=== PATIENT | female | born 1930 | race Caucasian/White ===

== ENCOUNTER → 2018-07-10 | Day surgery (SDC) | payer OTHER ==
--- NOTE | 2018-07-07 10:34 | RAD REPORT ---
EXAM DESCRIPTION: RAD - Chest Pa And Lat (2 Views) - 07/07/2018 10:27 am CLINICAL HISTORY: preop Chest pain. COMPARISON: Chest Pa And Lat (2 Views) dated 06/30/2018; CHEST SINGLE VIEW dated 07/07/2014; CHEST SIN GLE VIEW dated 02/27/2013; CHEST PA AND LAT 2 VIEW dated 09/17/2008 FINDINGS: Diffuse emphysematous changes are present throughout the lungs. The heart is mildly to mod erately enlarged in size with a single lead pacer device present. No displaced fractures. Aortic athe rosclerosis. IMPRESSION: Advanced COPD. Mild cardiomegaly.
[2018-07-07 11:33] LABS: Potassium 4.1 mmol/L (3.5-5.1)
[2018-07-07 11:38] LABS: Absolute Lymphocytes (CBC) 1.1 K/uL (0.7-4.9); Absolute Monocytes 0.6 K/uL (0.1-1.3); Absolute Neutrophil 4.4 K/uL (1.8-8.0); Basophils % 0.6 % (0-1.3); Eosinophils % 1.5 % (0-4.4); Hematocrit 38.4 % (36.0-45.0); Lymphocytes % 18.3 % (15.3-44.8); MCH 29.9 pg (27.0-35.0); MCV 90.2 fL (80-100); MPV 8.6 fL (7.6-11.3); Monocytes % 9.6 % (3.3-12.3); RBC Red Blood Cell Count 4.26 M/uL (3.86-4.86)
[2018-07-07 11:46] LABS: Protime INR 1.44
[~2018-07-10] MED LIST: FENTANYL CITR 100 MCG/2 ML ONE; HEPA 1000U/500MLS 2,000 UNIT/1,000 ML BAG IV ONE; HEPARIN 5000 UNIT/ML 1 ML VIAL ONE; LIDOCAINE 1% MPF 30 ML VIAL ONE; MIDAZOLAM HCL 2 MG/2 ML INJ ONE; NA CHLORIDE 0.9% 100 ML IV ONE; NA CHLORIDE 0.9% 500 ML ONE; NICARDIPINE HCL 25 MG/10 ML IV ONE; NITROGLYCERIN/D5W 0 MG/0 ML BTL IV ONE
[2018-07-10 12:02] VITALS: O2SAT 96
[2018-07-10 12:40] VITALS: BP 133/40; TEMP 97.7
--- NOTE | 2018-07-10 20:25 | OP ---
Surgeon: García Strong MD Primary Care Physician: Lawrence Daniel M.D. Procedure: Left and right heart catheterization, coronary angiography, and calculation of aortic елена ve area. Procedure Findings: The patient has severe aortic stenosis. A mean pressure gradient of more than 5 0 mmHg. Cardiac output is 3.2 L/minute. Estimated aortic valve area less than 0.6 square cm. Her c oronary arteries are normal. No left ventriculogram was done. She has moderate pulmonary hypertensi on with RV and PA systolic pressures of 52 and 53 mmHg. Procedure In Detail: The patient was brought to the cardiac labor utilization superintendent in a fasting state, sedated wit h Versed and fentanyl. Right femoral vein and artery were identified using palpation. A 1% lidocain e was used to anesthetize the skin over each one. Each vessel was entered with an 18-gauge needle. Modified Seldinger technique allowed us to put a 4-Romansh sheath in the femoral artery and a 7-Romansh sheath in the femoral vein. We used a [place]-Marek catheter to do right heart catheterization, cardiac output, it had to be guided into place using a 0.025 inch guidewire to give the curve acceptable. T he guidewire was not actually extended but just used to shape the catheter. Cardiac outputs were by thermal dilution, pressures were by digital manometry. At the end of the procedure, the left coronar y artery was angiogrammed using a JL-4 right coronary using a 3DRC. We were unable to cross the aort ic valve with a J-wire, so we used a straight wire. We could not cross it using a 3DRC. We used an Amplatz right modified. With that we were able to direct the wire and cross the valve and got a pres sure gradient mean about 50 mmHg. At the end of the procedure, catheters and wires were all withdraw n. An angiogram was done of the right femoral artery using the sheath. The arteriotomy closed with Angio-Seal device. Vein closed using manual pressure. No complications from the procedure. Estimated Blood Loss: 10 cc. Movie Critic: Latosha Marcum. DAMIEN/DANA Voice ID: [id number] Report ID: [id number]
== END | disposition home or self-care (01) ==
LOC: CCL 06:50
PROVIDERS: ATTEND Internal Medicine
DX: I35.0 Nonrheumatic aortic (valve) stenosis (principal); I27.20 Pulmonary hypertension, unspecified; I48.2 Chronic atrial fibrillation; I10 Essential (primary) hypertension; E78.5 Hyperlipidemia, unspecified; Z95.0 Presence of cardiac pacemaker; Z82.49 Family history of ischemic heart disease and other diseases of the circulatory system
CPT/HCPCS: 36415; 71046; 80048; 85025; 85610; 85730; 93460; C1760; C1893; J2250; J3010; J0583; J1644

== ENCOUNTER 2018-08-13 04:34 | Observation (INO) | payer OTHER ==
[2018-08-13] MEDS ORDERED: LEVALBUTEROL 1.25 MG/3 ML NEB ONE (05:39)
[2018-08-13] MEDS ORDERED: IPRATROPIUM BROM 0.5MG/2.5ML ONE (05:39)
[2018-08-13] MEDS ORDERED: METHYLPREDNISOLONE 125 MG INJ ONE (05:39)
[2018-08-13] MEDS ORDERED: NITROGLYCERIN 1 GM PKT TD ONE (05:39)
[2018-08-13] MEDS ORDERED: FUROSEMIDE 40 MG/4 ML VIAL ONE (05:50)
[2018-08-13 05:56] LABS: Absolute Lymphocytes (CBC) 0.6 K/uL (0.7-4.9); Absolute Monocytes 0.7 K/uL (0.1-1.3); Absolute Neutrophil 5.9 K/uL (1.8-8.0); Basophils % 0.6 % (0-1.3); Eosinophils % 0.6 % (0-4.4); Hematocrit 32.8 % (36.0-45.0); Lymphocytes % 8.1 % (15.3-44.8); MCH 29.8 pg (27.0-35.0); MPV 7.6 fL (7.6-11.3); Monocytes % 9.3 % (3.3-12.3); RBC Red Blood Cell Count 3.72 M/uL (3.86-4.86)
--- NOTE | 2018-08-13 06:03 | EDPHYS ---
Physician Documentation [facility] Name: Yoanna Durbin Age: 88 yrs Sex: Female : 1930 Arrival Date: 08/13/2018 Time: 04:35 Bed 6 Private MD: ED Physician Giovany Couch HPI: 08/13 05:20 This 88 yrs old Female presents to ER via Wheelchair with complaints of inocente Breathing Difficulty. 05:20 The patient has shortness of breath at rest, with light activity. Onset: The inocente symptoms/episode began/occurred 3 day(s) ago. Duration: The symptoms are continuous, and are steadily getting worse. The patient's shortness of breath has no apparent modifying factors. Severity of symptoms: At their worst the symptoms were mild moderate in the emergency department the symptoms are unchanged. The patient has experienced similar episodes in the past, a few times. Historical: - Allergies: 04:55 No Known Allergies; lp1 - Home Meds: 04:55 Lasix 40 mg Oral tab 1 tab once daily [Active]; metoprolol tartrate 25 mg Oral tab 0.5 lp1 tab 2 times per day [Active]; simvastatin 20 mg Oral tab 1 tab once daily [Active]; digoxin 125 mcg Oral tab 1 tab once daily [Active]; Xarelto 15 mg oral tab daily [Active]; - PMHx: 04:55 Atrial Fib; Hypertension; Hyperlipidemia; lp1 - PSHx: 04:55 pacemaker; lp1 - Immunization history:: Adult Immunizations up to date. - Social history:: Smoking status: Patient/guardian denies using tobacco. - Ebola Screening: : No symptoms or risks identified at this time. ROS: 05:22 Constitutional: Negative for fever, chills, and weight loss, Eyes: Negative for injury, inocente pain, redness, and discharge, ENT: Negative for injury, pain, and discharge, Neck: Negative for injury, pain, and swelling, Cardiovascular: Negative for chest pain, palpitations, and edema, Abdomen/GI: Negative for abdominal pain, nausea, vomiting, diarrhea, and constipation, Back: Negative for injury and pain, : Negative for injury, bleeding, discharge, and swelling, Skin: Negative for injury, rash, and discoloration, Neuro: Negative for headache, weakness, numbness, tingling, and seizure, Psych: Negative for depression, anxiety, suicide ideation, homicidal ideation, and hallucinations, Allergy/Immunology: Negative for hives, rash, and allergies, Endocrine: Negative for neck swelling, polydipsia, polyuria, polyphagia, and marked weight changes, Hematologic/Lymphatic: Negative for swollen nodes, abnormal bleeding, and unusual bruising. 05:22 MS/extremity: Positive for swelling, of the right leg and left leg. Exam: 05:22 Constitutional: This is a well developed, well nourished patient who is awake, alert, inocente and in no acute distress. Head/Face: Normocephalic, atraumatic. Eyes: Pupils equal round and reactive to light, extra-ocular motions intact. Lids and lashes normal. Conjunctiva and sclera are non-icteric and not injected. Cornea within normal limits. Periorbital areas with no swelling, redness, or edema. ENT: Nares patent. No nasal discharge, no septal abnormalities noted. Tympanic membranes are normal and external auditory canals are clear. Oropharynx with no redness, swelling, or masses, exudates, or evidence of obstruction, uvula midline. Mucous membranes moist. Neck: Trachea midline, no thyromegaly or masses palpated, and no cervical lymphadenopathy. Supple, full range of motion without nuchal rigidity, or vertebral point tenderness. No Meningismus. Chest/axilla: Normal chest wall appearance and motion. Nontender with no deformity. No lesions are appreciated. Abdomen/GI: Soft, non-tender, with normal bowel sounds. No distension or tympany. No guarding or rebound. No evidence of tenderness throughout. Back: No spinal tenderness. No costovertebral tenderness. Full range of motion. Female : Normal external genitalia. Skin: Warm, dry with normal turgor. Normal color with no rashes, no lesions, and no evidence of cellulitis. 05:22 Cardiovascular: Rate: tachycardic, Rhythm: irregularly irregular, Pulses: Pulses are 4+ in bilateral radial, brachial, femoral, popliteal, posterior tibial and and dorsalis pedis arteries.. Heart sounds: murmur, crescendo, grade 4 over 6, heard in the aortic area, rub, not appreciated, gallop, not appreciated, S1, normal, S2, normal, Edema: 1+ edema to level of left midcalf and right midcalf, JVD: is noted bilaterally, to 1 cm. Vital Signs: 04:51 Pulse Ox 88% on R/A; lp1 04:51 BP 182 / 70; Pulse 96; Resp 24; Temp 97.6(O); Pulse Ox 93% on 3 lpm NC; Pain 0/10; lp1 05:26 BP 175 / 79; Pulse 101; Resp 25; Pulse Ox 95% on 3 lpm NC; tl2 05:50 BP 157 / 64; Pulse 95; Resp 18; Pulse Ox 97% on Nebulizer Mask; tl2 06:58 BP 144 / 67; Pulse 104; Resp 24; Pulse Ox 98% on 2 lpm NC; lp1 MDM: 04:50 Patient medically screened. [facility] 05:22 Data reviewed: vital signs, nurses notes, lab test result(s), EKG, radiologic studies, inocente plain films. 08/13 05:13 Order name: Basic Metabolic Panel; Complete Time: 07:40 [facility] 08/13 05:13 Order name: CBC with Diff; Complete Time: 06:30 [facility] 08/13 05:13 Order name: LFT's; Complete Time: 07:40 1 08/13 05:13 Order name: Magnesium; Complete Time: 07:40 [facility] 08/13 05:13 Order name: NT PRO-BNP; Complete Time: 07:40 [facility] 08/13 05:13 Order name: PT-INR; Complete Time: 06:30 1 08/13 05:13 Order name: Troponin (emerg Dept Use Only); Complete Time: 07:40 [facility] 08/13 05:18 Order name: Blood Culture Adult (2) [facility] 08/13 05:31 Order name: Lipase; Complete Time: 07:40 EDIN 08/13 05:34 Order name: Digoxin Level; Complete Time: 07:40 EDIN 08/13 06:24 Order name: Troponin I EDIN 08/13 06:24 Order name: Troponin I EDIN 08/13 05:13 Order name: XRAY Chest (1 view) [facility] 08/13 05:13 Order name: EKG; Complete Time: 05:14 [facility] 08/13 06:24 Order name: CONS Physician Consult EDIN 08/13 06:24 Order name: Low Sodium EDIN 08/13 06:24 Order name: Echo with Doppler EDIN 08/13 06:24 Order name: EKG Electrocardiogram EDMS 08/13 07:04 Order name: Urine Dipstick--Ancillary (enter results) bd 08/13 09:07 Order name: Urine Dipstick-Ancillary EDMS 08/13 05:13 Order name: Cardiac monitoring; Complete Time: 05:13 lp1 08/13 05:13 Order name: EKG - Nurse/Tech; Complete Time: 05:13 lp1 08/13 05:13 Order name: IV Saline Lock; Complete Time: 05:13 lp1 08/13 05:13 Order name: Labs collected and sent; Complete Time: 05:13 lp1 08/13 05:13 Order name: O2 Per Protocol; Complete Time: 05:14 lp1 08/13 05:13 Order name: O2 Sat Monitoring; Complete Time: 05:14 lp1 08/13 06:24 Order name: EKG Electrocardiogram EDMS Administered Medications: 05:38 Drug: Xopenex 2.5 mg Route: Inhalation; lp1 05:38 Drug: AtroVENT Aerosol 0.5 mg Route: Inhalation; lp1 05:53 Drug: SOLU-Medrol 125 mg Route: IVP; Site: right forearm; lp1 07:17 Follow up: Response: No adverse reaction hj 05:53 Drug: Nitro-Bid Ointment 2 % 0.5 inches Route: Transdermal; Site: anterior chest wall; lp1 05:53 Drug: Lasix 40 mg Route: IVP; Site: right forearm; lp1 07:17 Follow up: Response: No adverse reaction hj 06:52 Drug: Rocephin - (cefTRIAXone) 1 grams Route: IVPB; Infused Over: 30 mins; Site: right lp1 forearm; 07:17 Follow up: IV Status: Completed infusion hj 07:04 Drug: Zithromax 500 mg Route: IVPB; Infused Over: 1 hrs; Site: right forearm; hj 07:17 Follow up: IV Status: Infusion continued hj 07:41 Drug: Potassium Effervescent Tablet 25 mEq Route: PO; hj 08:12 Follow up: Response: No adverse reaction hj Disposition: 08/13/18 06:02 Hospitalization ordered by Lawrence Daniel for Inpatient Admission. Preliminary diagnosis are Hypoxemia, Unspecified combined systolic (congestive) and diastolic (congestive) heart failure, Chronic obstructive pulmonary disease with (acute) exacerbation, Nonrheumatic aortic (valve) stenosis with insufficiency, Atrial fibrillation and flutter. - Bed requested for Telemetry/MedSurg (Inpatient). - Status is Inpatient Admission. hj - Condition is Fair. - Problem is an acute exacerbation. - Symptoms have improved. UTI on Admission? No Signatures: Dispatcher [employer] EDIN Janie Vogel Hilda Szymanski RN RN mw Anderson, Corey, MD MD cha Pena, Laura, RN RN lp1 Evens Isabel RN RN hj Corrections: (The following items were deleted from the chart) 05:31 05:19 LIPASE+C.LAB.BRZ ordered. EDIN EDMS 05:33 05:31 DIGOXIN+C.LAB.BRZ ordered. [facility] EDIN 06:05 06:02 Hospitalization Ordered by Lawrence Daniel MD for Inpatient Admission. Preliminary diagnosis is Hypoxemia; Unspecified combined systolic (congestive) and diastolic (congestive) heart failure; Chronic obstructive pulmonary disease with (acute) exacerbation; Nonrheumatic aortic (valve) stenosis with insufficiency; Atrial fibrillation and flutter. Bed requested for Telemetry/MedSurg (Inpatient). Status is Inpatient Admission. Condition is Fair. Problem is an acute exacerbation. Symptoms have improved. UTI on Admission? No. inocente 15:49 06:05 08/13/2018 06:02 Hospitalization Ordered by Lawrence Daniel MD for Inpatient bd Admission. Preliminary diagnosis is Hypoxemia; Unspecified combined systolic (congestive) and diastolic (congestive) heart failure; Chronic obstructive pulmonary disease with (acute) exacerbation; Nonrheumatic aortic (valve) stenosis with insufficiency; Atrial fibrillation and flutter. Bed requested for [facility] ER HOLD. Status is Inpatient Admission. Condition is Fair. Problem is an acute exacerbation. Symptoms have improved. UTI on Admission? No. cindy 16:29 15:49 08/13/2018 06:02 Hospitalization Ordered by Lawrence Daniel MD for Inpatient hj Admission. Preliminary diagnosis is Hypoxemia; Unspecified combined systolic (congestive) and diastolic (congestive) heart failure; Chronic obstructive pulmonary disease with (acute) exacerbation; Nonrheumatic aortic (valve) stenosis with insufficiency; Atrial fibrillation and flutter. Bed requested for Telemetry/MedSurg (Inpatient). Status is Inpatient Admission. Condition is Fair. Problem is an acute exacerbation. Symptoms have improved. UTI on Admission? No. bd
--- NOTE | 2018-08-13 06:03 | ER ---
Nurse's Notes [facility] Name: Yoanna Durbin Age: 88 yrs Sex: Female : 1930 Arrival Date: 08/13/2018 Time: 04:35 Bed 6 Private MD: Diagnosis: Hypoxemia;Unspecified combined systolic (congestive) and diastolic (congestive) heart failure;Chronic obstructive pulmonary disease with (acute) exacerbation;Nonrheumatic aortic (valve) stenosis with insufficiency;Atrial fibrillation and flutter Presentation: 08/13 04:50 Presenting complaint: Patient states: "I feel like I'm not getting any air"; Patient lp1 states shortness of breath, recently started on Lasix due to need for heart valve replacement per family member. Transition of care: patient was not received from another setting of care. Onset of symptoms was August 13, 2018. Risk Assessment: Do you want to hurt yourself or someone else? Patient reports no desire to harm self or others. Initial Sepsis Screen: Does the patient meet any 2 criteria? No. Patient's initial sepsis screen is negative. Does the patient have a suspected source of infection? No. Patient's initial sepsis screen is negative. Care prior to arrival: None. 04:50 Method Of Arrival: Wheelchair lp1 04:50 Acuity: VANESSA 2 lp1 Historical: - Allergies: 04:55 No Known Allergies; lp1 - Home Meds: 04:55 Lasix 40 mg Oral tab 1 tab once daily [Active]; metoprolol tartrate 25 mg Oral tab 0.5 lp1 tab 2 times per day [Active]; simvastatin 20 mg Oral tab 1 tab once daily [Active]; digoxin 125 mcg Oral tab 1 tab once daily [Active]; Xarelto 15 mg oral tab daily [Active]; - PMHx: 04:55 Atrial Fib; Hypertension; Hyperlipidemia; lp1 - PSHx: 04:55 pacemaker; lp1 - Immunization history:: Adult Immunizations up to date. - Social history:: Smoking status: Patient/guardian denies using tobacco. - Ebola Screening: : No symptoms or risks identified at this time. Screenin:47 Abuse screen: Denies threats or abuse. Denies injuries from another. Nutritional lp1 screening: No deficits noted. Tuberculosis screening: No symptoms or risk factors identified. Fall Risk Total Buck Fall Scale indicates High Risk Score (45 or more points). Fall prevention measures have been instituted. Side Rails Up X 2 As available patient and family educated on Fall Prevention Program and Strategies. Assessment: 05:00 General: Appears uncomfortable, Behavior is appropriate for age. Pain: Denies pain. lp1 Neuro: Level of Consciousness is awake, alert, obeys commands, Oriented to person, place, situation. Cardiovascular: Patient's skin is warm and dry. Rhythm is atrial fibrillation. Respiratory: Reports shortness of breath at rest Airway is patent Respiratory effort is labored, Respiratory pattern is symmetrical, Breath sounds with crackles bilaterally. Onset: The symptoms/episode began/occurred gradually, the patient has moderate shortness of breath. GI: Abdomen is flat. : No signs and/or symptoms were reported regarding the genitourinary system. EENT: No signs and/or symptoms were reported regarding the EENT system. Derm: Skin is fragile, is thin, Skin is dry, Skin is normal. Musculoskeletal: Circulation, motion, and sensation intact. 06:00 Reassessment: Patient is alert, oriented x 3, equal unlabored respirations, skin lp1 warm/dry/pink. Patient states symptoms have improved. 07:20 General: Appears in no apparent distress. uncomfortable, Behavior is calm, cooperative, hj appropriate for age. 07:21 Pain: Denies pain. Neuro: Level of Consciousness is awake, alert, obeys commands, hj Oriented to person, place, time, situation, Appropriate for age. Cardiovascular: Capillary refill < 3 seconds Patient's skin is warm and dry. Rhythm is atrial fibrillation. Respiratory: Reports shortness of breath at rest Airway is patent Respiratory effort is even, labored, Respiratory pattern is regular, symmetrical, Breath sounds with crackles bilaterally. Onset: The symptoms/episode began/occurred gradually, the patient has moderate shortness of breath. GI: Abdomen is flat. : No signs and/or symptoms were reported regarding the genitourinary system. EENT: No signs and/or symptoms were reported regarding the EENT system. Derm: Skin is intact, is fragile, is thin, Skin is dry, Skin is normal. Musculoskeletal: Circulation, motion, and sensation intact. 08:37 Reassessment: documentation on [facility];. Vital Signs: 04:51 Pulse Ox 88% on R/A; lp1 04:51 BP 182 / 70; Pulse 96; Resp 24; Temp 97.6(O); Pulse Ox 93% on 3 lpm NC; Pain 0/10; lp1 05:26 BP 175 / 79; Pulse 101; Resp 25; Pulse Ox 95% on 3 lpm NC; tl2 05:50 BP 157 / 64; Pulse 95; Resp 18; Pulse Ox 97% on Nebulizer Mask; tl2 06:58 BP 144 / 67; Pulse 104; Resp 24; Pulse Ox 98% on 2 lpm NC; lp1 Vitals: 05:26 Cardiac Rhythm Assessment Atrial fibrillation. tl2 ED Course: 04:35 Patient arrived in ED. ag3 04:49 Courtney Gilliam, RN is Primary Nurse. lp1 04:50 Giovany Couch MD is Attending Physician. inocente 04:51 Triage completed. lp1 04:52 Arm band placed on left wrist. lp1 04:56 Patient has correct armband on for positive identification. Bed in low position. Call lp1 light in reach. Side rails up X2. appeals and generalist clerk on. Pulse ox on. NIBP on. 04:57 EKG done, by research laboratory technician. reviewed by Giovany Couch MD. oe 05:14 Inserted saline lock: 20 gauge in right forearm, using aseptic technique. Blood lp1 collected. 05:22 X-ray completed. Portable x-ray completed in exam room. Patient tolerated procedure sg4 well. 05:25 XRAY Chest (1 view) In Process Unspecified. EDMS 05:59 Leonidas Newby FNP is Hospitalizing Provider. inocente 05:59 Hospitalizing Provider role handed off by Leonidas Newby FNP inocente 05:59 Lawrence Daniel MD is Hospitalizing Provider. inocente 05:59 Lawrence Daniel MD is Hospitalizing Provider. inocente 06:59 No provider procedures requiring assistance completed. IV discontinued, No lp1 redness/swelling at site. Pressure dressing applied. 07:02 Urine collected: clean catch specimen, afsaneh colored, Amount Voided: 30mL. oe 07:13 Evens Isabel, RN is Primary Nurse. hj Administered Medications: 05:38 Drug: Xopenex 2.5 mg Route: Inhalation; lp1 05:38 Drug: AtroVENT Aerosol 0.5 mg Route: Inhalation; lp1 05:53 Drug: SOLU-Medrol 125 mg Route: IVP; Site: right forearm; lp1 07:17 Follow up: Response: No adverse reaction hj 05:53 Drug: Nitro-Bid Ointment 2 % 0.5 inches Route: Transdermal; Site: anterior chest wall; lp1 05:53 Drug: Lasix 40 mg Route: IVP; Site: right forearm; lp1 07:17 Follow up: Response: No adverse reaction hj 06:52 Drug: Rocephin - (cefTRIAXone) 1 grams Route: IVPB; Infused Over: 30 mins; Site: right lp1 forearm; 07:17 Follow up: IV Status: Completed infusion hj 07:04 Drug: Zithromax 500 mg Route: IVPB; Infused Over: 1 hrs; Site: right forearm; hj 07:17 Follow up: IV Status: Infusion continued hj 07:41 Drug: Potassium Effervescent Tablet 25 mEq Route: PO; hj 08:12 Follow up: Response: No adverse reaction hj Outcome: 06:02 Decision to Hospitalize by Provider. inocente 16:28 Admitted to Tele accompanied by tech, family with patient, via wheelchair, room 401, hj with oxygen, with chart, Report called to KODAK Knox 16:28 Condition: stable 16:28 Instructed on the need for admit, Demonstrated understanding of instructions. 16:29 Patient left the ED. Signatures: Dispatcher [employer] EDGiovany Couch MD MD cha Pena, Laura, RN RN lp1 Evens Isabel RN RN hj Knox, Taylor, RN RN tl2 Matt Boss Alice ag3 Peggy Kirk sg4 Corrections: (The following items were deleted from the chart) 06:49 05:00 Respiratory: Airway is patent Respiratory effort is labored, Respiratory pattern lp1 is symmetrical, Breath sounds with crackles bilaterally. Onset: The symptoms/episode began/occurred gradually, the patient has moderate shortness of breath lp1 07:22 07:20 General: Appears in no apparent distress. uncomfortable, Behavior is calm, hj cooperative, appropriate for age, hj
[2018-08-13] MEDS ORDERED: ALBUTEROL 2.5 MG/3 ML NEB SOL NEB PRN (06:07)
[2018-08-13] MEDS ORDERED: IPRATROPIUM BROM 0.5MG/2.5ML NEB PRN (06:07)
[2018-08-13] MEDS ORDERED: ACETAMINOPHEN 500 MG TAB PO PRN (06:07)
[2018-08-13] MEDS ORDERED: ONDANSETRON 4 MG/2 ML VIAL IV PRN (06:07)
[2018-08-13] MEDS ORDERED: MORPHINE 4 MG/ML SYR IV PRN (06:07)
[2018-08-13 06:09] LABS: Protime INR 2.44
[2018-08-13] MEDS ORDERED: CEFTRIAXONE 1000 MG/VIAL ONE (06:43)
[2018-08-13] MEDS ORDERED: AZITHROMYCIN 500 MG/250 ML BAG ONE (06:43)
[2018-08-13] MEDS ORDERED: NA CHLORIDE 0.9% 50 ML IV ONE (06:44)
[2018-08-13 06:46] LABS: Albumin 2.8 g/dL (3.4-5.0); Bilirubin Direct 0.3 mg/dL (0-0.2); Bilirubin Total 0.8 mg/dL (0.2-1.0); Digoxin Level 1.5 ng/mL (0.80-2.00); Magnesium 2.2 mg/dL (1.8-2.4); Potassium 3.8 mmol/L (3.5-5.1); Protein, Total 7.4 g/dL (6.4-8.2); Troponin (Emerg Dept Use Only) 0.08 ng/mL (0.0-0.045)
[2018-08-13] MEDS ORDERED: POTASSIUM 25 MEQ EFFERV TAB ONE (08:12)
[2018-08-13 08:37] VITALS: BMI 20.5
[2018-08-13] MEDS: FUROSEMIDE 20 MG/ 2ML VIAL IV SCH ×2 (08:59→17:47)
[2018-08-13] MEDS ORDERED: METHYLPREDNISOLONE 40 MG INJ ONE (08:59)
[2018-08-13] MEDS: DIGOXIN 0.125 MG TABLET PO SCH (08:59)
[2018-08-13] MEDS ORDERED: FUROSEMIDE 20 MG TABLET ONE (08:59)
[2018-08-13] MEDS ORDERED: INFLUENZA VACCINE (for 3y+) 0.5 ML DOSE IMVAC ONE (09:00)
[2018-08-13] MEDS ORDERED: AZITHROMYCIN IV 250 MG in NA CHLORIDE 0.9% 250 ML IVPB SCH (09:00)
[2018-08-13] MEDS ORDERED: PNEUMOCOCCAL VACCINE 0.5 ML IMVAC ONE (09:00)
[2018-08-13] MEDS: METHYLPREDNISOLONE 40 MG INJ IV SCH ×2 (09:00→17:47)
[2018-08-13] MEDS ORDERED: CEFTRIAXONE 1 GM/NS 50 ML 1 GM/50 ML BAG IV SCH (09:00)
[2018-08-13 09:07] LABS: Urine Blood 1+ (NEG); Urine Glucose NEGATIVE (NEG); Urine Protein 2+ (NEG); Urine pH 7.5 (5.0-7.0)
--- NOTE | 2018-08-13 09:16 | RAD REPORT ---
EXAM DESCRIPTION: RAD - Chest Single View - 08/13/2018 5:25 am CLINICAL HISTORY: Chest pain, shortness of breath COMPARISON: July 07 TECHNIQUE: AP portable chest image was obtained 0510 hours . FINDINGS: The patient has a baseline of extensive interstitial lung disease. Interstitial markings a re increased in prominence. Central vasculature is also increased. Patient has a single lead left sub clavian pacemaker. Heart size is fractionally increased. No focal consolidation or mass. No pneumotho rax is present. A small left pleural effusion has developed. No acute bony abnormality seen. No acute aortic findings suspected. IMPRESSION: Mild CHF/volume overload pattern superimposed on interstitial fibrosis.
[2018-08-13] MEDS ORDERED: RIVAROXABAN 15 MG TABLET PO SCH (17:00)
[2018-08-13] MEDS: METOPROLOL TAR 25 MG TAB PO SCH (17:41)
[2018-08-14] MEDS: METHYLPREDNISOLONE 40 MG INJ IV SCH ×2 (01:00→08:24)
[2018-08-14] MEDS: METOPROLOL TAR 25 MG TAB PO SCH (05:40)
[2018-08-14 06:13] LABS: Absolute Lymphocytes (CBC) 0.7 K/uL (0.7-4.9); Absolute Monocytes 0.2 K/uL (0.1-1.3); Absolute Neutrophil 7.1 K/uL (1.8-8.0); Hematocrit 32.7 % (36.0-45.0); Lymphocytes % 8.2 % (15.3-44.8); MCH 30.4 pg (27.0-35.0); MCV 87.6 fL (80-100); MPV 8.2 fL (7.6-11.3); Monocytes % 2.9 % (3.3-12.3); RBC Red Blood Cell Count 3.74 M/uL (3.86-4.86)
[2018-08-14 06:22] LABS: Potassium 4.4 mmol/L (3.5-5.1)
--- NOTE | 2018-08-14 07:05 | EKG ---
Test Date: 2018-08-13 Test Time: 04:52:56 Psychiatric Nursing Aide: MIRLANDE MEASUREMENT RESULTS: Intervals: Rate: 103 DC: QRSD: 128 QT: 342 QTc: 448 [place]: P: DC: QRS: 67 T: -49 INTERPRETIVE STATEMENTS: Atrial fibrillation with rapid ventricular response Indeterminate axis Right bundle branch block T wave abnormality, consider inferior ischemia or digitalis effect Abnormal ECG Compared to ECG 07/07/2014 23:06:07 Indeterminate axis now present T-wave abnormality now present Possible ischemia now present Electronically Signed On 08-14-18 07:03:29 UTILITY DRIVER by Rodrick Sommers
--- NOTE | 2018-08-14 07:11 | RAD REPORT ---
EXAM DESCRIPTION: RAD - Chest Single View - 08/14/2018 6:32 am CLINICAL HISTORY: Chest pain COMPARISON: August 13 TECHNIQUE: AP portable chest image was obtained 0617 hours . FINDINGS: Baseline interstitial lung disease is again noted. Lung volumes are low accentuating lung markings. There probably has been some true decrease in an interstitial edema or infiltrative process . Heart size is stable. Upper lobe vasculature within normal limits. Vasculature has decreased in pro minence. No pneumothorax is present. Bilateral pleural effusions are present. No acute bony abnormali ty seen. No acute aortic findings suspected. IMPRESSION: Small bilateral pleural effusions are present possibly new from prior day imaging. Diminished prominence of the vasculature and lung markings. CHF/volume overload appearance has improv ed.
[2018-08-14] MEDS: DIGOXIN 0.125 MG TABLET PO SCH (08:24)
[2018-08-14] MEDS: FUROSEMIDE 20 MG/ 2ML VIAL IV SCH (08:24)
[2018-08-14 08:27] LABS: Anisocytosis 1+; Blood Morphology Comment NOTED (NOT SEEN); Platelet Estimate ADEQ; Urine White Blood Cell Casts OK
[2018-08-14] MEDS ORDERED: CEFTRIAXONE/SWI 1gm 1 GM/10 ML SYR IV SCH (09:00)
[2018-08-14] MEDS ORDERED: AZITHROMYCIN IV 250 MG in NA CHLORIDE 0.9% 250 ML IVPB SCH (09:00)
[2018-08-14 12:11] VITALS: O2SAT 93
[2018-08-14 12:12] VITALS: BP 134/55; TEMP 98.2
--- NOTE | 2018-08-14 12:52 | CON ---
CARDIOLOGY CONSULT Chief Complaint: Dyspnea. History Of Present Illness: Mrs. 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 Act ually, we have known about it, watched it go from mild to moderate, to severe, to severe with symptom s. She had a cardiac cath about a month ago. Her coronary arteries are perfectly normal. Her aorti c stenosis is critical. We got a valve area much less than 0.8. She is scheduled for a TAVR, but it has not happened yet. There have been various delays. Family expresses a little bit of frustration with the process actually and so far still has the same valve that she was born with and it is criti franci stenosed. She came to the hospital with severe dyspnea. A chest x-ray was done and it showed some mild pulmonary edema. A repeat chest x-ray indicates that that has improved. She has a pacemak er. She has received some diuretics and feels back to normal. Physical Examination: General: She is alert, oriented, pleasant, not in distress. Lungs: Do not show wheezes. Abdomen: Soft. Extremities: Unremarkable. No edema, cyanosis, clubbing. Cardiac Exam: Reveals a murmur consistent with aortic stenosis. Impression: My impression is the patient has now reached a point where she can be discharged. I thi nk the patient will be at risk of this coming back as long as she still has her elim ira valve. I will make a call to Dr. Vazquez's service and see if it is possible to move up the date, let him know she came in with pulmonary edema. He might wish to see her transferred. Thank you very much for your kind referral of Ms. Durbin. I will follow her with you. JESSIKA Voice ID: [id number] Report ID: [id number]
--- NOTE | 2018-08-14 14:02 | EKG ---
Test Date: 2018-08-14 Test Time: 10:13:48 Emergency Nurse: JAMES MEASUREMENT RESULTS: Intervals: Rate: 82 IL: QRSD: 126 QT: 368 QTc: 429 [place]: P: IL: QRS: 215 T: -83 INTERPRETIVE STATEMENTS: Atrial fibrillation Right bundle branch block T wave abnormality, consider inferolateral ischemia or digitalis effect Abnormal ECG Compared to ECG 08/13/2018 04:52:56 Indeterminate axis no longer present T-wave abnormality still present Possible ischemia still present Electronically Signed On 08-14-18 14:01:23 WRITING TUTOR by García Strong
--- NOTE | 2018-08-14 16:12 | ECHO ---
HEIGHT: 5 ft 0 in WEIGHT: 105 lb 6.4 oz DATE OF STUDY: 08/14/[address]: Giovany Couch MD 2-DIMENSIONAL: YES M.MODE: YES DOPPLER: YES COLOR FLOW: YES TDS: NO PORTABLE: NO DEFINITY: NO BUBBLE STUDY: NO DIAGNOSIS: CHRONIC OBSTRUCTIVE PULMONARY DISEASE/ ATRIAL FIBRILLATION CARDIAC HISTORY: CATHERIZATION: YES SURGERY: NO PROSTHETIC VALVE: NO PACEMAKER: YES MEASUREMENTS (cm) DIASTOLIC (NORMALS) SYSTOLIC (NORMALS) IVSd 1.3 (0.6-1.2) LA Diam 4.4 (1.9-4.0) LVEF 48% LVIDd 4.8 (3.5-5.7) LVIDs 3.6 (2.0-3.5) %FS 24% LVPWd 1.2 (0.6-1.2) Ao Diam 2.7 (2.0-3.7) 2 DIMENSIONAL ASSESSMENT: RIGHT ATRIUM: NORMAL LEFT ATRIUM: DILATED RIGHT VENTRICLE: PACEMAKER CATHETER LEFT VENTRICLE: LEFT VENTRICULAR HYPERTROPHY TRICUSPID VALVE: NORMAL MITRAL VALVE: MITRAL ANNULAR CALCIFICATION PULMONIC VALVE: NORMAL AORTIC VALVE: STENOSIS PERICARDIAL EFFUSION: NONE AORTIC ROOT: NORMAL LEFT VENTRICULAR WALL MOTION: MILD GLOBAL HYPOKINESIS. DOPPLER/COLOR FLOW: MODERATE MITRAL AND TRCUSPID REGURGITATION. ESTIMATED RIGHT VENTRICULAR SYSOTLIC PRESSURE 50mmHg (MODEDRATE PULMONARY HYPERTENSION). SEVERE AORTIC STENOSIS. PEAK/MEAN GRADIENT 68/38mmHg, ESTIMATED AORTIC VALVE AREA 0.6 CENTIMETERS SQUARED. COMMENTS: MILDLY DEPRESSED LEFT VENTRICULAR EJECTION FRACTION. MODERATE PULMONARY HYPERTENSION. LEFT VENTRICULAR HYPERTROPHY. DILATED LEFT ATRIUM. MITRAL ANNULAR CALCIFICATION. MODERATE MITRAL AND TRICUSPID REGURGITATION. SEVERE AORTIC VALVE AREA. TECHNOLOGIST: JANINA DAMON
--- NOTE | 2018-08-15 09:52 | SS ---
Date of Discharge: 08/14/2018 History: An 88-year-old female with a history of multiple medical problems including chronic atrial fibrillation, came to emergency room with complaints of being tired with increased shortness of breat h. Her workup showed that the patient has combined diastolic and systolic failure with some fluid ov erload and she was admitted for that. The patient denies any chest pain, no dizziness, and she voice d no other complaints. Review of Systems: Respiratory: As above. Cardiovascular: The patient had no chest pain. [place] some palpitation, but no other complaint. Gastrointestinal: No complaint. Genitourinary: No complaint. Skeletomuscular: No complaint. Pulmonary: As above. Neurological: No complaint. Past Medical History: 1.Chronic atrial fibrillation. 2.COPD. 3.Aortic valve stenosis. 4.Chronic atrial fibrillation. 5.Hyperlipidemia. 6.Diastolic and systolic heart failure, chronic. Family History: Noncontributory. Social History: No smoking, alcohol, or drug abuse history. Medications: Lasix 40 mg p.o. daily, metoprolol 12.5 mg p.o. b.i.d., Xarelto 15 mg p.o. daily, simva statin 20 mg p.o. at bedtime, digoxin 0.125 mg p.o. daily. Allergies: NO KNOWN DRUG ALLERGIES. Physical Examination: Vital Signs: Blood pressure 130/60, pulse 70, temperature 97.5. Heart: Irregular rate and rhythm. Chest: Clear to auscultation. Abdomen: Soft, nontender, nondistended. Bowel sounds normoactive. Extremities: No edema. No cyanosis. Peripheral pulses are felt. Neurologic: Alert, oriented, nonfocal, grossly intact. Imaging Data: Chest x-ray; mild CHF, volume overload with interstitial fibrosis with small bilateral effusions. EKG: Atrial fibrillation with rapid ventricular response rate at a rate 103 with right bundle-branch block. Intermediate axis deviation. Laboratory Data: CBC: Hemoglobin 11.4, hematocrit 32.7, platelets 266, white cell count 8, PT 29, I NR 2.44. Chemistry: BUN 27, creatinine 1.20, blood sugar 168. The patient's troponin 1 was 0.08, r apid troponin 0.10. BNP was 19,235, then 30,085. Urinalysis, no white cells noted. Hospital Course: The patient was admitted to the hospital. She was put on IV Lasix, bedrest, and lo w salt. She was put on ceftriaxone IV for possible UTI and beta 2 agonist breathing treatments and p rednisolone because of her history of COPD. I think that the patient actually did well with diuresis and some breathing treatments. Cardiology has seen the patient, and from the cardiology standpoint, they think that the patient is stable enough to be discharged. I have instructed the patient to fol low a low-salt diet and to follow up with Cardiology to continue home medicines and not to skip any L asix. I think that the patient's COPD is stable. I do not think she has at this time any infectious process going, so patient to continue her home medicines and avoid salty diet. Follow up with me an d with Cardiology. Look discharge orders for details. HILDA/DANA Voice ID: [id number] Report ID: [id number]
== END 2018-08-14 14:03 | disposition home or self-care (01) ==
LOC: ER 04:34 → ERHOLD 06:37 → INTOOBSV 06:37 → 4TH 16:12
PROVIDERS: ADMIT Internal Medicine; ATTEND Internal Medicine
DX: I50.43 Acute on chronic combined systolic (congestive) and diastolic (congestive) heart failure (principal); I48.2 Chronic atrial fibrillation; J44.9 Chronic obstructive pulmonary disease, unspecified; I35.0 Nonrheumatic aortic (valve) stenosis; E78.5 Hyperlipidemia, unspecified; Z95.0 Presence of cardiac pacemaker
CPT/HCPCS: 36415 ×2; 71045 ×2; 80048 ×2; 80076; 80162; 81003; 83690; 83735; 83880 ×2; 84484 ×2; 85025 ×2; 85610; 87040 ×2; 93005 ×2; 93306; 96365; 96375; 99285; G0008; G0378 ×2; J0456 ×2; J0696; J1940 ×3; J2920 ×4; J2930

== ENCOUNTER 2018-08-30 20:36 | Inpatient (IN) | payer OTHER ==
--- OUTSIDE RECORDS SUMMARY | 2018-08-30 20:38 | XMS REPORT | Clinical Summary ---
:1930 Author Organization [facility] Address [address] [place] [address] Care Team Providers Name Role Phone Provider, Unknown Primary Care Provider Unavailable Allergies No Known Allergies Medications Medication Sig Dispensed Refills Start Date End Date Status rivaroxaban (XARELTO) Take 15 mg by 0 Active 15 mg tablet mouth. digOXIN (LANOXIN) 125 Take 125 mcg by 0 Active mcg tablet mouth daily. simvastatin (ZOCOR) 20 Take 20 mg by 0 Active MG tablet mouth nightly. metoprolol tartrate Take 25 mg by 0 Active (LOPRESSOR) 25 mg mouth 2 (two) tablet times a day. furosemide (LASIX) 40 Take 40 mg by 0 Active mg tablet mouth 2 (two) times a day. Active Problems Problem Noted Date Aortic stenosis 08/28/2018 HLD (hyperlipidemia) 08/28/2018 A-fib 08/28/2018 HTN (hypertension) 08/28/2018 Encounters Date Type Specialty Care Team Description 08/29/2018 Hospital Encounter Procedural Taylor, Nonrheumatic aortic valve stenosis; Cardiology Breann Abnormal cardiovascular function study MD Vinay 08/29/2018 Multidisciplinary Visit Cardiology Emmie, Nonrheumatic aortic Kavin Cardoso, valve stenosis (Primary Dx) 08/29/2018 Office Visit Cardiovascular Taylor Aortic valve Breann stenosis, etiology MD Vinay of cardiac valve disease unspecified (Primary Dx) 08/29/2018 Hospital Encounter Pulmonology Taylor, Nonrheumatic aortic valve stenosis; Breann Preoperative respiratory examination MD Vinay 08/29/2018 Hospital Encounter Procedural Taylor, Arrived Cardiology Breann Mclean MD 07/17/2018 Orders Only Cardiovascular Ashley Urbina, Nonrheumatic aortic valve stenosis (Primary Dx); RN Abnormal cardiovascular function study; Preoperative cardiovascular examination; Preoperative respiratory examination after 08/29/2017 Social History Tobacco Use Types Packs/Day Years Used Date Never Assessed Sex Assigned at Date Recorded Not on file Job Start Date Occupation Industry Not on file Not on file Not on file Travel History Travel Start Travel End No recent travel history available. Last Filed Vital Signs Vital Sign Reading Time Taken Blood Pressure 154/65 08/29/2018 4:16 PM [employer] Pulse 107 08/29/2018 4:16 PM [employer] Temperature - - Respiratory Rate 18 08/29/2018 4:16 PM [employer] Oxygen Saturation - - Inhaled Oxygen Concentration - - Weight 51.7 kg (114 lb) 08/29/2018 4:08 PM [employer] Height 167.6 cm (5' 6") 08/29/2018 4:08 PM [employer] Body Mass Index 18.4 08/29/2018 4:08 PM [employer] Plan of Treatment Health Maintenance Due Date Last Done Comments SHINGRIX VACCINE (1 of 2) 1982 ZOSTER VACCINE 1992 PNEUMOCOCCAL POLYSACCHARIDE VACCINE AGE 65 AND OVER 1997 PNEUMOCOCCAL-13 1997 INFLUENZA VACCINE 05/03/2018 Procedures Procedure Name Priority Date/Time Associated Diagnosis Comments ESTIMATED GFR Routine 08/29/2018 4:08 Results for this PM [employer] procedure are in the results section. POC CREATININE Routine 08/29/2018 4:08 Results for this PM [employer] procedure are in the results section. ECG 12-LEAD Routine 08/29/2018 3:09 Nonrheumatic aortic Results for this PM [employer] valve stenosis procedure are in the results section. SPIROMETRY, DIFFUSION Routine 08/29/2018 1:31 Nonrheumatic aortic Results for this PM [employer] valve stenosis procedure are in Preoperative the results respiratory section. examination US CAROTID DUPLEX Routine 08/29/2018 11:15 Nonrheumatic aortic Results for this BILATERAL AM [employer] valve stenosis procedure are in Preoperative the results cardiovascular section. examination ECHOCARDIOGRAM 2D Routine 08/29/2018 10:08 Results for this COMPLETE W MMODE AM [employer] procedure are in SPECTRAL COLOR DOPPLER the results (58762) section. after 08/29/2017 Results Estimated GFR (08/29/2018 4:08 PM [employer]) Estimated GFR 37 (A) mL/min/1.73 m2 [facility] Comment: HOSPITAL CatergoryUnitsInterpretation G1 >=90 Normal or high G2 60-89Mildly decreased H2n24-37Hztgbo to moderately decreased E3a50-80Ewyedpsjmt to severely decreased G4 15-29Severely decreased G5 <15Kidney failure The eGFR was calculated using the Chronic Kidney Disease Epidemiology Collaboration (CKD-EPI) equation. Interpretation is based on recommendations of the National Kidney Foundation-Kidney Disease Outcomes Quality Initiative (NKF-KDOQI) published in 2014. Specimen Blood Performing Organization Address City/[facility] Cent[facility] Phone Number [facility] DEPARTMENT OF PATHOLOGY AND [address] [place] [id number] [place] [phone] POC creatinine (08/29/2018 4:08 PM LE[employer]ING LE[employer]) POC creatinine 1.3 (H) 0.5 - 0.9 mg/dl [facility] Comment: Meter ID: [id number] Wool Mixer: Arabella Ace Specimen Blood Performing Organization Address [facility] Centercode Phone Number [facility] DEPARTMENT OF PATHOLOGY AND [address] [place], [place] [phone] ECG 12 lead (08/29/2018 3:09 PM LEAN MANUFACTURING LE[employer]) Ventricular rate 110 [facility] Atrial rate 117 [facility] QRSD interval 126 [facility] QT interval 356 [facility] QTC interval 481 [facility] QRS axis 1 173 [facility] T wave axis 90 [facility] EKG impression Atrial fibrillation with rapid ventricular response-Right bundle branch block-Left posterior fascicular block-^^^ Bifascicular block ^^^- T wave abnormality, consider inferolateral ischemia-Abnormal ECG- [facility] MUSE No previous ECGs available- Narrative Performed At Performing Organization Address [facility] Centercode Phone Number [facility] MUSE [address] [place] [address] Spirometry, diffusion (08/29/2018 1:31 PM [employer] LE[employer]) FEV1 Pre 1.43 1.22 - 2.42 L [facility] FEV1/FVC % Pre 69.55 62.74 - 82.33 % [facility] FVC Pre 2.05 1.75 - 3.18 L [facility] PEF Pre 4.48 2.57 - 6.10 L/s [facility] FEF 25-75% Pre 0.84 -0.12 - 2.43 L/s [facility] DLCO Pre 11.98 12.63 - 25.63 ml/(min*mmHg) [facility] DL/VA Pre 2.76 2.67 - 5.31 ml/(min*mmHg*L) [facility] VA SB Pre 4.35 4.12 - 6.33 L [facility] DLCOc Pre 11.98 12.63 - 25.63 ml/(min*mmHg) [facility] KCOc SB Pre 2.76 2.67 - 5.31 ml/(min*mmHg*L) [facility] Hb Pre 13.40 g(Hb)/dL [facility] FEV1 Predicted 1.82 [facility] FEV1 LLN 1.22 [facility] FEV1 % Pre of Predicted 78.3 % [facility] FVC Predicted 2.47 [facility] FVC LLN 1.75 [facility] FVC % Pre of Predicted 83.2 % [facility] FEV1/FVC % Predicted 73 [facility] FEV1/FVC % LLN 63 [facility] FEV1/FVC % Pre of Predicted 95.9 % [facility] FEF 25-75% Predicted 1.15 [facility] FEF 25-75% LLN -0.12 [facility] FEF 25-75% % Pre of Predicted 73.1 % [facility] PEF Predicted 4.34 [facility] PEF LLN 2.57 [facility] PEF % Pre of Predicted 103.3 % [facility] VC Predicted 2.47 [facility] VC LLN 1.75 [facility] ERV Predicted 0.42 [facility] ERV LLN 0.42 [facility] FRCpl % Predicted 2.78 [facility] FRCpl % LLN 1.96 [facility] IC Predicted 1.93 [facility] IC LLN 1.93 [facility] RV Predicted 2.36 [facility] RV LLN 1.79 [facility] RV % TLC Predicted 48 [facility] RV % TLC LLN 39 [facility] TLC Predicted 5.11 [facility] TLC LLN 4.12 [facility] Raw Predicted 3.06 [facility] Raw LLN 3.06 [facility] R0.5IN Predicted 3.06 [facility] R0.5IN LLN 3.06 [facility] sGaw Predicted 0.10 [facility] sGaw LLN 0.10 [facility] DLCO Predicted 19.13 [facility] DLCO LLN 12.63 [facility] DLCO % Pre of Predicted 62.6 % [facility] DLCOc Predicted 19.13 [facility] DLCOc LLN 12.63 [facility] DLCOc % Pre of Predicted 62.6 % [facility] DL/VA Predicted 3.99 [facility] DL/VA LLN 2.67 [facility] DL/VA % Pre of Predicted 69.0 % [facility] KCOc SB Predicted 3.99 [facility] KCOc SB LLN 2.67 [facility] KCOc SB % Pre of Predicted 69.0 % [facility] VA SB Predicted 5.23 [facility] VA SB LLN 4.12 [facility] VA SB % Pre of Predicted 83.2 % [facility] MIP Predicted 43.79 [facility] MIP LLN 20.69 [facility] MEP Predicted 53.45 [facility] MEP LLN 13.85 [facility] MVV Predicted 71 [facility] MVV LLN 60 [facility] Narrative Performed At Performing Organization Address City/State/Zipcode Phone Number [facility] [address] [place] [address] Us carotid duplex (08/29/2018 11:15 AM LEAN [employer]UFACTURING LEADER) Narrative Performed At [facility] Car[facility]id [facility]lex Report [address] [place], [place] For quality control tech purposes, the categorization of the degree of the stenosis of this exam is based on criteria described in the IAC carotid stenosis grading white paper( www.intersocietal.org/Vascular) and in Bisi Leblanc., Gladys Andrade., et al. Carotid artery stenosis: voss-scale and Doppler US diagnosis--Society of Radiologists in Ultrasound Consensus Conference. Radiology. 2003 Aug; 229(2):340-6. Pat.Name:Brittany DURBIN.ID:[id number] .Date: 08/29/2018Refer.:BREANN VAZQUEZ MD Exam Time: 10:42:00 AM Study Type:Carotid DOBAge:1930,88Y Sex: FEMALE Sonogrphr: Sean Pruitt RVT TapeVol: IV, CPT - 4: 17394 Echo Event ID:[id number] Order ID:[id number] Reason for Study:Aortic stenosis; Pre/op exam Race:C SUMMARY: CAROTID ARTERY SCAN RIGHT:There is intimal thickening in the common carotid artery. There is hard and calcifiedplaque noted in the bulb.Colorflow is undisturbed. There is antegrade flow in the vertebral artery. LEFT:There is intimal thickening in the common carotid artery. There is hard, calcified and irregularplaque noted in the bulb extending into the proximal internal and external carotid artery. Colorflow is disturbed with elevated velocities.There is antegrade flow in the vertebral artery. PRELIMINARY FINDINGS 1.<50% stenosis right internal carotid artery. 2. 50-69% stenosis left mid internal carotid artery. 3. There is antegrade flow in the vertebral artery bilaterally. Patient seen the same day in the clinic by Dr Vazquez PHYSICIAN INTERPRETATION 1.<50% stenosis right internal carotid artery. 2. 50-69% stenosis left mid internal carotid artery. 3. There is antegrade flow in the vertebral artery bilaterally. Carotid Findings:RightLeft Verteb.Flw AntegradeAntegrade Subclavian TriphasicBiphasic MEASUREMENTS: DOPPLER Left Bulb Bulb PSV57.2 cm/sBulb EDV 0 cm/s Left CCA Dist CCA Dist PSV54.7 cm/sCCA Dist EDV 0 cm/s Left CCA Mid CCA Mid PSV 58.9 cm/sCCA Mid EDV0 cm/s Left CCA Prox CCA Prox PSV95.5 cm/sCCA Prox EDV 0 cm/s Left ICA Dist ICA Dist PSV 146 cm/Whit Dist EDV18.8 cm/s Left ICA Mid ICA Mid LFR103 cm/Whit Mid EDV 31 cm/s Left ICA Prox ICA Prox PSV84.7 cm/Whit Prox EDV14.9 cm/s Left ECA Prox ECA Prox PSV54 cm/sECA Prox EDV 0 cm/s Left SCA Prox SCA Prox PSV96.6 cm/s Left Vertebral Vertebral PSV 47.2 cm/sVertebral EDV0 cm/s Right Bulb Bulb PSV45.7 cm/sBulb EDV 0 cm/s Right CCA Dist CCA Dist PSV69.6 cm/sCCA Dist EDV 0 cm/s Right CCA Mid CCA Mid PSV 74.6 cm/sCCA Mid EDV0 cm/s Right CCA Prox CCA Prox PSV77 cm/sCCA Prox EDV 0 cm/s Right ICA Dist ICA Dist PSV88.9 cm/Whit Dist EDV15.4 cm/s Right ICA Prox ICA Prox PSV63.1 cm/Whit Prox EDV9.88 cm/s Right ECA Prox ECA Prox PSV77.9 cm/sECA Prox EDV 0 cm/s Right SCA Prox SCA Prox PSV 126 cm/s Right Vertebral Vertebral PSV 73.4 cm/sVertebral EDV 12.8 cm/s Right ICA Mid ICA Mid PSV 92.7 cm/Whit Mid EDV 12.6 cm/s Right ICA/CCA Ratio ICA/CCA PSV0.846 Left ICA/CCA Ratio ICA/CCA PSV 1.44 Signed 08/30/2018 06:37 PM Pam Gaspar MD Procedure Note Interface, Radiology Results In - 08/30/2018 6:41 PM [facility] Carotid Duplex Report [address] [place] [address] For quality control tech purposes, the categorization of the degree of the stenosis of this exam is based on criteria described in the IAC carotid stenosis grading white paper( www.intersocietal.org/Vascular) and in Bisi Leblanc., Gladys Andrade., et al. Carotid artery stenosis: voss-scale and Doppler US diagnosis--Society of Radiologists in Ultrasound Consensus Conference. Radiology. 2003 Nov; 229(2):340-6. Pat.Name: YOANNA DURBIN Pat.ID: [id number] .Date: 08/29/2018 Refer.MD: BREANN VAZQUEZ MD Exam Time: 10:42:00 AM Study Type:Carotid Age: 10 1930,88Y Sex: FEMALE Sonogrphr: Sean Pruitt RVT Tape Vol: IV, CPT - 4: 82372 Echo Event ID:[id number] Order ID: [id number] Reason for Study:Aortic stenosis; Pre/op exam Race: C SUMMARY: CAROTID ARTERY SCAN RIGHT: There is intimal thickening in the common carotid artery. There is hard and calcified plaque noted in the bulb. Colorflow is undisturbed. There is antegrade flow in the vertebral artery. LEFT: There is intimal thickening in the common carotid artery. There is hard, calcified and irregular plaque noted in the bulb extending into the proximal internal and external carotid artery. Colorflow is disturbed with elevated velocities. There is antegrade flow in the vertebral artery. PRELIMINARY FINDINGS 1. <50% stenosis right internal carotid artery. 2. 50-69% stenosis left mid internal carotid artery. 3. There is antegrade flow in the vertebral artery bilaterally. Patient seen the same day in the clinic by Dr Vazquez PHYSICIAN INTERPRETATION 1. <50% stenosis right internal carotid artery. 2. 50-69% stenosis left mid internal carotid artery. 3. There is antegrade flow in the vertebral artery bilaterally. Carotid Findings: Right Left Verteb.Flw Antegrade Antegrade Subclavian Triphasic Biphasic MEASUREMENTS: DOPPLER Left Bulb Bulb PSV 57.2 cm/s Bulb EDV 0 cm/s Left CCA Dist CCA Dist PSV 54.7 cm/s CCA Dist EDV 0 cm/s Left CCA Mid CCA Mid PSV 58.9 cm/s CCA Mid EDV 0 cm/s Left CCA Prox CCA Prox PSV 95.5 cm/s CCA Prox EDV 0 cm/s Left ICA Dist ICA Dist PSV 146 cm/s ICA Dist EDV 18.8 cm/s Left ICA Mid ICA Mid PSV 186 cm/s ICA Mid EDV 31 cm/s Left ICA Prox ICA Prox PSV 84.7 cm/s ICA Prox EDV 14.9 cm/s Left ECA Prox ECA Prox PSV 54 cm/s ECA Prox EDV 0 cm/s Left SCA Prox SCA Prox PSV 96.6 cm/s Left Vertebral Vertebral PSV 47.2 cm/s Vertebral EDV 0 cm/s Right Bulb Bulb PSV 45.7 cm/s Bulb EDV 0 cm/s Right CCA Dist CCA Dist PSV 69.6 cm/s CCA Dist EDV 0 cm/s Right CCA Mid CCA Mid PSV 74.6 cm/s CCA Mid EDV 0 cm/s Right CCA Prox CCA Prox PSV 77 cm/s CCA Prox EDV 0 cm/s Right ICA Dist ICA Dist PSV 88.9 cm/s ICA Dist EDV 15.4 cm/s Right ICA Prox ICA Prox PSV 63.1 cm/s ICA Prox EDV 9.88 cm/s Right ECA Prox ECA Prox PSV 77.9 cm/s ECA Prox EDV 0 cm/s Right SCA Prox SCA Prox PSV 126 cm/s Right Vertebral Vertebral PSV 73.4 cm/s Vertebral EDV 12.8 cm/s Right ICA Mid ICA Mid PSV 92.7 cm/s ICA Mid EDV 12.6 cm/s Right ICA/CCA Ratio ICA/CCA PSV 0.846 Left ICA/CCA Ratio ICA/CCA PSV 1.44 Signed 08/30/2018 06:37 PM Pam Gaspar MD Performing Organization Address City/State/Zipcode Phone Number [facility] [address] [place] [address] Echocardiogram complete w contrast and 3D if needed (08/29/2018 10:08 AM LE[employer] MANUFACTURING LEADER) Narrative Performed At [facility] Echocardiography Report [id number] [address] [facility].Name:Brittany DURBIN.ID:[id number] .Date: 08/29/2018Refer.MD:BREANN VAZQUEZ MD Exam Time: 9:10:00 AMStudy Type:Routine Echo Height:65inWeight: 118lb BSA: 1.58 m2 DOBAge:1929,88Y Sex: FEMALEBP: 135/57 HR:87 bpm Sonogrphr: Dorcas Phelan BS, RCS; Laura Be. Stat.:OutpatientRoom:[facility] 16 Study Status:Final Echo Event ID:[id number] Order ID:[id number] Reason for Study:Aortic Stenosis Procedures:2D Echo, Colorflow Doppler SUMMARY: There is severe concentric LV hypertrophy. LV EF is mildly depressed. Biplane LV EF is 48%. RV systolic function is mild to moderately depressed. Severe aortic valve stenosis. Estimated mean aortic valve gradient 45 mmHg with a valve area of 0.5 cm2. Estimated PA systolic pressure is 48 mmHg, assuming a mean RAP of 10 mmHg. FINDINGS: LV: LV size is upper limits of normal. There is severe concentricLV hypertrophy. LV EF is mildly depressed. Overallwall motion is mildly hypokinetic. Septal motion is paradoxicalsecondary to LBBB or conduction abnormality. BiplaneLV EF is 48%. RV: RV size is normal. A pacemaker wire is seen in the RV. RV systolicfunction is mild to moderately depressed. LA: LA volume is severely enlarged. RA: RA volume is normal. A pacemaker wire is seen. AO: Aortic root diameter is upper limits of normal in size. Calcificationsin ascending aorta. QUINTEN: No pericardial effusion. AV: Severe thickening and calcification of AV leaflets. Mild to moderateaortic regurgitation. Severe aortic valve stenosis.Estimated mean aortic valve gradient 45 mmHg with avalve area of 0.5 cm2. MV: Mild mitral annular calcification. Mild mitral regurgitation. PV: No structural PV abnormalities noted. A trace of pulmonic regurgitation. TV: No structural TV abnormalities noted. Mild tricuspid regurgitation Eason: LV relaxation is impaired. LV filling pressure is elevated. Other:Estimated PA systolic pressure is 48 mmHg, assuming a mean RAPof 10 mmHg. MEASUREMENTS: 2D Parasternal Long [place] LVIDd4.8 cmIndex 3 cm/m LA Ds5.2 cm LVIDs3.4 cmAo Rtd 2.9 cm Index1.8 cm/m LV%fs 28.4 % LV Mass 220.2 g(87-129) IVSd 1.1 cmLVM Index 139.4 g/m2 LVPWd1.3 cmRWT 0.6 LA Sng Plane LA Area 28.6 cm2(8.8-23.4) LA Vol 116 ml Index73.4 ml/m LA LngAx 6 cm RA Sng Plane RA Area 12.7 cm2(8.3-19.5) RA Vol 27 ml Index17.1 ml/m RA LngAx 4.9 cm EF Biplane SQO447.3 mlSV 60.8 ml ESV 66.6 mlEF 47.7 % DOPPLER AV For Flow/ROD AV pkVel 464.5 cm/s (100-170) AV AC/ET 0.3 AV mnVel 301.2 cm/Mariella TVI 102.6 cm AV pkPG 86.3 mmHgAVpkAcRt 8255.8 cm/s2 AV Mean G 45 mmHgAV DeRt 1363.4 cm/s2 AV AC111 msec (83-118) AV Area0.5 cm2(3-5) AV ET341 msec LVOT For Flow LVOT Area2.5 cm2 LVOT SV 55.6 ml LVOTpkVel 89.8 cm/sHR 57.5 bpm LVOTpkPG 3.2 mmHgLVOT CO 3.2 l/min LVOTmnPG 1.5 mmHgLVOT CI 2 l/m/m2 LVOT TVI21.8 cm Signed 08/30/2018 03:57 PM Sean Garcia M.D. Procedure Note Interface, Radiology Results In - 08/30/2018 3:57 PM [employer] Echocardiography Report [id number] [place] [address] Pat.Name: YOANNA DURBIN Pat.ID: [id number] .Date: 08/29/2018 Refer.MD: BREANN VAZQUEZ MD Exam Time: 9:10:00 AM Study Type:Routine Echo Height: 65in Weight: 118lb BSA: 1.58 m2 Age: 10 1930,88Y Sex: FEMALE BP: 135/57 HR: 87 bpm Sonogrphr: REG Cheung, RCS; Laura Lazcano Stat.:Outpatient Room: [facility] 16 Study Status:Final Echo Event ID:[id number] Order ID: [id number] Reason for Study:Aortic Stenosis Procedures:2D Echo, Colorflow Doppler SUMMARY: There is severe concentric LV hypertrophy. LV EF is mildly depressed. Biplane LV EF is 48%. RV systolic function is mild to moderately depressed. Severe aortic valve stenosis. Estimated mean aortic valve gradient 45 mmHg with a valve area of 0.5 cm2. Estimated PA systolic pressure is 48 mmHg, assuming a mean RAP of 10 mmHg. FINDINGS: LV: LV size is upper limits of normal. There is severe concentric LV hypertrophy. LV EF is mildly depressed. Overall wall motion is mildly hypokinetic. Septal motion is paradoxical secondary to LBBB or conduction abnormality. Biplane LV EF is 48%. RV: RV size is normal. A pacemaker wire is seen in the RV. RV systolic function is mild to moderately depressed. LA: LA volume is severely enlarged. RA: RA volume is normal. A pacemaker wire is seen. AO: Aortic root diameter is upper limits of normal in size. Calcifications in ascending aorta. QUINTEN: No pericardial effusion. AV: Severe thickening and calcification of AV leaflets. Mild to moderate aortic regurgitation. Severe aortic valve stenosis. Estimated mean aortic valve gradient 45 mmHg with a valve area of 0.5 cm2. MV: Mild mitral annular calcification. Mild mitral regurgitation. PV: No structural PV abnormalities noted. A trace of pulmonic regurgitation. TV: No structural TV abnormalities noted. Mild tricuspid regurgitation Eason: LV relaxation is impaired. LV filling pressure is elevated. Other: Estimated PA systolic pressure is 48 mmHg, assuming a mean RAP of 10 mmHg. MEASUREMENTS: 2D Parasternal Long [place] LVIDd 4.8 cm Index 3 cm/m LA Ds 5.2 cm LVIDs 3.4 cm Ao Rtd 2.9 cm Index 1.8 cm/m LV%fs 28.4 % LV Mass 220.2 g (87-129) IVSd 1.1 cm LVM Index 139.4 g/m2 LVPWd 1.3 cm RWT 0.6 LA Sng Plane LA Area 28.6 cm2 (8.8-23.4) LA Vol 116 ml Index 73.4 ml/m LA LngAx 6 cm RA Sng Plane RA Area 12.7 cm2 (8.3-19.5) RA Vol 27 ml Index 17.1 ml/m RA LngAx 4.9 cm EF Biplane EDV 127.3 ml SV 60.8 ml ESV 66.6 ml EF 47.7 % DOPPLER AV For Flow/ROD AV pkVel 464.5 cm/s (100-170) AV AC/ET 0.3 AV mnVel 301.2 cm/s AV TVI 102.6 cm AV pkPG 86.3 mmHg AVpkAcRt 8255.8 cm/s2 AV Mean G 45 mmHg AV DeRt 1363.4 cm/s2 AV AC 111 msec (83-118) AV Area 0.5 cm2 (3-5) AV ET 341 msec LVOT For Flow LVOT Area 2.5 cm2 LVOT SV 55.6 ml LVOTpkVel 89.8 cm/s HR 57.5 bpm LVOTpkPG 3.2 mmHg LVOT CO 3.2 l/min LVOTmnPG 1.5 mmHg LVOT CI 2 l/m/m2 LVOT TVI 21.8 cm Signed 08/30/2018 03:57 PM Sean Garcia M.D. Performing Organization Address City/State/Zipcode Phone Number [facility] [address] [place] [address] after 08/29/2017 Insurance Payer Benefit Plan / Group Subscriber ID Type Phone Address KAILEE DUGAN [facility] xxxxxxxxx HMO (Home) [place] [address] Advance Directives Patient has advance care planning documents on file. For more information, please contact:Toan [id number] [place] [address]
[2018-08-30 22:37] LABS: Absolute Lymphocytes (CBC) 0.9 K/uL (0.7-4.9); Absolute Monocytes 0.6 K/uL (0.1-1.3); Absolute Neutrophil 4.9 K/uL (1.8-8.0); Basophils % 0.7 % (0-1.3); Eosinophils % 0.6 % (0-4.4); Hematocrit 23.3 % (36.0-45.0); Lymphocytes % 13.7 % (15.3-44.8); MCH 30.5 pg (27.0-35.0); MCV 89.1 fL (80-100); RBC Red Blood Cell Count 2.62 M/uL (3.86-4.86)
[2018-08-30 23:05] LABS: Protime INR 3.05
[2018-08-30 23:21] LABS: Albumin 2.9 g/dL (3.4-5.0); Bilirubin Direct 0.2 mg/dL (0-0.2); Bilirubin Total 0.5 mg/dL (0.2-1.0); Magnesium 2.1 mg/dL (1.8-2.4); Potassium 3.8 mmol/L (3.5-5.1); Protein, Total 6.3 g/dL (6.4-8.2)
[2018-08-30 23:22] LABS: Troponin (Emerg Dept Use Only) 1.95 ng/mL (0.0-0.045)
[2018-08-31] MEDS ORDERED: ASPIRIN 325 MG TAB ONE (01:12)
[2018-08-31] MEDS ORDERED: FUROSEMIDE 40 MG/4 ML VIAL ONE (01:16)
--- NOTE | 2018-08-31 01:21 | ER ---
Nurse's Notes [facility] Name: Yoanna Durbin Age: 88 yrs Sex: Female : 1930 Arrival Date: 08/30/2018 Time: 20:40 Bed 3 Private MD: Lawrence Daniel F Diagnosis: Non-ST elevation (NSTEMI) myocardial infarction Presentation: 08/30 20:45 Presenting complaint: Presenting complaint: EMS states: "we were called out for a pt jd3 having shortness of breath. Upon arrival, pt was breathing at 30 bpm and was 97% on room air, we applied oxygen for comfort. Reported the shortness of breath relieving upon arrival to the hospital. family states that last time she was here, Dr. Strong told them to go to [facility] and that the pt is in the need of a cardiac valve replacement.". 21:03 Transition of care: patient was not received from another setting of care. Onset of jd3 symptoms was August 30, 2018. Risk Assessment: Do you want to hurt yourself or someone else? Patient reports no desire to harm self or others. Initial Sepsis Screen: Does the patient meet any 2 criteria? No. Patient's initial sepsis screen is negative. Does the patient have a suspected source of infection? No. Patient's initial sepsis screen is negative. Care prior to arrival: IV initiated. 20 GA, in the right antecubital area, Oxygen administered. via nasal cannula. 21:03 Method Of Arrival: [facility] [place]d3 21:03 Acuity: VANESSA 3 jd3 Triage Assessment: 21:12 Respiratory: Reports shortness of breath the patient has mild shortness of breath. jd3 21:12 Respiratory: Onset: The symptoms/episode began/occurred this morning. jd3 Historical: - Allergies: 21:09 No Known Allergies; jd3 - Home Meds: 21:09 digoxin 125 mcg Oral tab 1 tab once daily [Active]; Lasix 40 mg Oral tab 1 tab once jd3 daily [Active]; metoprolol tartrate 25 mg Oral tab 0.5 tab 2 times per day [Active]; simvastatin 20 mg Oral tab 1 tab once daily [Active]; Xarelto 15 mg Oral tab daily [Active]; - PMHx: 21:09 Atrial Fib; Hyperlipidemia; Hypertension; CHF; jd3 - PSHx: 21:09 pacemaker; jd3 - Immunization history:: Adult Immunizations up to date, Flu vaccine is up to date. - Social history:: Smoking status: Patient/guardian denies using tobacco. - Ebola Screening: : Patient negative for fever greater than or equal to 101.5 degrees Fahrenheit, and additional compatible Ebola Virus Disease symptoms. Screenin:11 Abuse screen: Denies threats or abuse. Nutritional screening: No deficits noted. jd3 Tuberculosis screening: No symptoms or risk factors identified. Fall Risk IV access (20 points). Ambulatory Aid- Crutches/Cane/Walker (15 pts). Gait- Weak (10 pts.). Mental Status- Oriented to own ability (0 pts). Total Buck Fall Scale indicates High Risk Score (45 or more points). Fall prevention measures have been instituted. Side Rails Up X 2 Placed Close to Nursing Station Frequent Obs/Assessments Occuring Family Present and informed to notify staff if the need to leave the bedside. Assessment: 21:10 General: Appears uncomfortable, Behavior is cooperative, appropriate for age. Pain: jd3 Denies pain. Neuro: Level of Consciousness is awake, alert, obeys commands, Oriented to person, place, time, situation. Cardiovascular: Capillary refill < 3 seconds Patient's skin is warm and dry. Rhythm is atrial fibrillation. Respiratory: Airway is patent Respiratory effort is even, unlabored, Respiratory pattern is regular, symmetrical, Breath sounds are clear bilaterally. GI: No signs and/or symptoms were reported involving the gastrointestinal system. : No signs and/or symptoms were reported regarding the genitourinary system. EENT: No signs and/or symptoms were reported regarding the EENT system. Derm: Skin is intact, Skin is dry, Skin is normal, Skin temperature is warm. Musculoskeletal: Circulation, motion, and sensation intact. Range of motion: intact in all extremities. 21:54 Reassessment: Patient appears in no apparent distress at this time. Patient and/or jd3 family updated on plan of care and expected duration. Pain level reassessed. Patient is alert, oriented x 3, equal unlabored respirations, skin warm/dry/pink. 22:15 Reassessment: Patient appears in no apparent distress at this time. Patient and/or jd3 family updated on plan of care and expected duration. Pain level reassessed. Patient is alert, oriented x 3, equal unlabored respirations, skin warm/dry/pink. 23:30 Reassessment: Patient appears in no apparent distress at this time. Patient and/or jd3 family updated on plan of care and expected duration. Pain level reassessed. Patient is alert, oriented x 3, equal unlabored respirations, skin warm/dry/pink. 08/31 00:56 Reassessment: Patient appears in no apparent distress at this time. Patient and/or jd3 family updated on plan of care and expected duration. Pain level reassessed. Patient is alert, oriented x 3, equal unlabored respirations, skin warm/dry/pink. provider at bedside. 02:09 Reassessment: Patient appears in no apparent distress at this time. Patient and/or jd3 family updated on plan of care and expected duration. Pain level reassessed. Patient is alert, oriented x 3, equal unlabored respirations, skin warm/dry/pink. provider at bedside. 03:29 Reassessment: Patient appears in no apparent distress at this time. Patient and/or jd3 family updated on plan of care and expected duration. Pain level reassessed. Patient is alert, oriented x 3, equal unlabored respirations, skin warm/dry/pink. awaiting RT for admission. Vital Signs: 08/30 21:09 BP 110 / 51; Pulse 99; Resp 22 S; Temp 97.7(O); Pulse Ox 95% on R/A; Weight 51.71 kg j (R); Height 5 ft. 5 in. (165.10 cm) (R); Pain 0/10; 22:16 BP 96 / 53; Pulse 94; Resp 25 S; Pulse Ox 96% on R/A; jd3 23:45 BP 106 / 60; Pulse 86; Resp 23 S; Pulse Ox 96% on R/A; jd3 08/31 00:57 BP 109 / 57; Pulse 85; Resp 23 S; Pulse Ox 97% on 2 lpm NC; jd3 02:09 BP 110 / 44; Pulse 110; Resp 23 S; Pulse Ox 95% on R/A; jd3 03:28 BP 111 / 57; Pulse 106; Resp 25 S; Pulse Ox 100% on BiPAP; jd3 08/30 21:09 Body Mass Index 18.97 (51.71 kg, 165.10 cm) jd3 02:09 provider notified of blood pressure, no new orders at this time. jd3 ED Course: 08/30 20:40 Patient arrived in ED. am2 20:40 Lawrence Daniel MD is Private Physician. am2 20:42 Melo Puente NP is PHCP. pm1 20:42 Armando Chanel MD is Attending Physician. pm1 20:45 Kumar Carter RN is Primary Nurse. jd3 21:06 Triage completed. jd3 21:10 Arm band placed on. jd3 21:12 Patient has correct armband on for positive identification. Bed in low position. Call jd3 light in reach. Side rails up X2. Adult w/ patient. 21:36 XRAY Chest (1 view) In Process Unspecified. EDMS 23:22 Notified Nurse Practitioner and/or Physician Real Estate Loan Processor of a critical lab result(s), fc trop of 1.95. 08/31 01:20 Lawrence Daniel MD is Hospitalizing Provider. pm1 02:11 No provider procedures requiring assistance completed. Maintain EMS IV. Dressing jd3 intact. Good blood return noted. Site clean \\T\\ dry. Gauge \\T\\ site: 20 G right AC. Patient admitted, IV remains in place. 03:24 Digoxin Sent. jd3 Administered Medications: 01:15 Not Given (Physician Discretion): Bumex 1 mg IVP once jd3 01:16 Drug: Aspirin 325 mg Route: PO; jd3 03:25 Follow up: Response: No adverse reaction jd3 01:16 Drug: Lasix 40 mg Route: IVP; Site: right antecubital; jd3 03:25 Follow up: Response: No adverse reaction jd3 Outcome: 01:20 Decision to Hospitalize by Provider. pm1 02:26 Admitted to Tele accompanied by tech, via stretcher, room 213, with chart, Report jd3 called to Kylee CANDELARIO 02:26 Condition: stable 02:26 Instructed on the need for admit, Demonstrated understanding of instructions. 03:36 Patient left the ED. wil Signatures: Dispatcher [employer] EDMS Samantha Moseley RN RN Melo Puente NP DEBRANDER pm1 Sara Chery am2 Sarah Kat RN RN ea Davies, Jonathon, RN RN jd3 Corrections: (The following items were deleted from the chart) 08/30 21:06 20:45 Presenting complaint: jd3 jd3 22:16 21:54 BP 98 / 39; Pulse 92bpm; Resp 20bpm; Spontaneous; Pulse Ox 95% RA; jd3 jd3 22:24 22:15 BP 111 / 40; Pulse 89bpm; Resp 25bpm; Spontaneous; Pulse Ox 95% RA; jd3 jd3 08/31 02:11 02:09 BP 110 / 44; Pulse 110bpm; Resp 23bpm; Spontaneous; Pulse Ox 95% RA; jd3 jd3
--- NOTE | 2018-08-31 01:21 | EDPHYS ---
Physician Documentation [facility] Name: Yoanna Durbin Age: 88 yrs Sex: Female : 1930 Arrival Date: 08/30/2018 Time: 20:40 Bed 3 Private MD: Lawrence Daniel F ED Physician Aramndo Chanel HPI: 08/30 21:15 This 88 yrs old Female presents to ER via EMS with complaints of Shortness Of pm1 Breath. 21:15 The patient has shortness of breath at rest. Onset: The symptoms/episode began/occurred pm1 today. Duration: The symptoms are continuous, resolved on arrival to ER. The patient's shortness of breath is aggravated by exertion, is alleviated by rest, application of supplemental oxygen. Associated signs and symptoms: Pertinent negatives: chest pain, non-productive cough, productive cough, fever. Severity of symptoms: in the emergency department the symptoms have resolved Pain is currently a 0 / 10. The patient has experienced similar episodes in the past, a few times, today's symptoms are similar, to previous hospitalization with CHF and aortic stenosis. The patient has been recently seen by a physician: yesterday, taoism for preoperative for TAVR. Historical: - Allergies: 21:09 No Known Allergies; jd3 - Home Meds: 21:09 digoxin 125 mcg Oral tab 1 tab once daily [Active]; Lasix 40 mg Oral tab 1 tab once jd3 daily [Active]; metoprolol tartrate 25 mg Oral tab 0.5 tab 2 times per day [Active]; simvastatin 20 mg Oral tab 1 tab once daily [Active]; Xarelto 15 mg Oral tab daily [Active]; - PMHx: 21:09 Atrial Fib; Hyperlipidemia; Hypertension; CHF; jd3 - PSHx: 21:09 pacemaker; jd3 - Immunization history:: Adult Immunizations up to date, Flu vaccine is up to date. - Social history:: Smoking status: Patient/guardian denies using tobacco. - Ebola Screening: : Patient negative for fever greater than or equal to 101.5 degrees Fahrenheit, and additional compatible Ebola Virus Disease symptoms. ROS: 21:15 Constitutional: Negative for fever, chills, and weight loss, Eyes: Negative for injury, pm1 pain, redness, and discharge, ENT: Negative for injury, pain, and discharge, Neck: Negative for injury, pain, and swelling, Cardiovascular: Negative for chest pain, palpitations, and edema. 21:15 Abdomen/GI: Negative for abdominal pain, nausea, vomiting, diarrhea, and constipation, Back: Negative for injury and pain, : Negative for injury, bleeding, discharge, and swelling, MS/Extremity: Negative for injury and deformity, Skin: Negative for injury, rash, and discoloration, Neuro: Negative for headache, weakness, numbness, tingling, and seizure. 21:15 Respiratory: Positive for shortness of breath, Negative for cough, sputum production, wheezing. Exam: 21:15 Constitutional: This is a well developed, well nourished patient who is awake, alert, pm1 and in no acute distress. Head/Face: Normocephalic, atraumatic. Eyes: Pupils equal round and reactive to light, extra-ocular motions intact. Lids and lashes normal. Conjunctiva and sclera are non-icteric and not injected. Cornea within normal limits. Periorbital areas with no swelling, redness, or edema. ENT: Nares patent. No nasal discharge, no septal abnormalities noted. Tympanic membranes are normal and external auditory canals are clear. Oropharynx with no redness, swelling, or masses, exudates, or evidence of obstruction, uvula midline. Mucous membranes moist. Neck: Trachea midline, no thyromegaly or masses palpated, and no cervical lymphadenopathy. Supple, full range of motion without nuchal rigidity, or vertebral point tenderness. No Meningismus. Chest/axilla: Normal chest wall appearance and motion. Nontender with no deformity. No lesions are appreciated. 21:15 Respiratory: Lungs have equal breath sounds bilaterally, clear to auscultation and percussion. No rales, rhonchi or wheezes noted. No increased work of breathing, no retractions or nasal flaring. 21:15 Abdomen/GI: Soft, non-tender, with normal bowel sounds. No distension or tympany. No guarding or rebound. No evidence of tenderness throughout. Back: No spinal tenderness. No costovertebral tenderness. Full range of motion. Skin: Warm, dry with normal turgor. Normal color with no rashes, no lesions, and no evidence of cellulitis. MS/ Extremity: Pulses equal, no cyanosis. Neurovascular intact. Full, normal range of motion. 21:15 Cardiovascular: Rate: normal, Rhythm: irregular, Pulses: no pulse deficits are appreciated, Heart sounds: murmur, systolic, heard in the aortic area, Edema: pedal edema, that is very mild. 21:15 Atrial fibrillation 21:15 Neuro: Orientation: is normal, Sensation: is normal, no obvious gross deficits, Gait: is steady, at a normal pace, without difficulty. Vital Signs: 21:09 BP 110 / 51; Pulse 99; Resp 22 S; Temp 97.7(O); Pulse Ox 95% on R/A; Weight 51.71 kg jd3 (R); Height 5 ft. 5 in. (165.10 cm) (R); Pain 0/10; 22:16 BP 96 / 53; Pulse 94; Resp 25 S; Pulse Ox 96% on R/A; jd3 23:45 BP 106 / 60; Pulse 86; Resp 23 S; Pulse Ox 96% on R/A; jd3 08/31 00:57 BP 109 / 57; Pulse 85; Resp 23 S; Pulse Ox 97% on 2 lpm NC; jd3 02:09 BP 110 / 44; Pulse 110; Resp 23 S; Pulse Ox 95% on R/A; jd3 03:28 BP 111 / 57; Pulse 106; Resp 25 S; Pulse Ox 100% on BiPAP; jd3 08/30 21:09 Body Mass Index 18.97 (51.71 kg, 165.10 cm) jd3 02:09 provider notified of blood pressure, no new orders at this time. jd3 MDM: 08/30 20:43 Patient medically screened. pm1 08/31 01:00 ED course: Patient took her night medications prior to coming to the ER. Patient took pm1 her xarelto before coming to ER. 01:10 ED course: [facility] refused transfer due to capacity. pm1 01:19 Data reviewed: vital signs. Data interpreted: Pulse oximetry: on room air is 97 %. pm1 Interpretation: normal. 01:20 Physician consultation: Lawrence Daniel MD was called at 01:15. pm1 01:34 Physician consultation: García Strong MD was called at 01:20, was contacted at 01:25, pm1 regarding consult, patient's condition, and will see patient tomorrow. 02:35 ED course: Patient complaining of shortness of breath. Dr. Chanel present to evaluate pm1 patient in room also. Recommends BIPAP. 03:00 ED course: Patient shortness of breath resolved with bipap. pm1 08/30 20:53 Order name: Basic Metabolic Panel pm1 08/30 20:53 Order name: CBC with Diff pm1 08/30 20:53 Order name: LFT's pm1 08/30 20:53 Order name: Magnesium; Complete Time: 23:52 pm1 08/30 20:53 Order name: NT PRO-BNP; Complete Time: 23:52 pm1 08/30 20:53 Order name: PT-INR; Complete Time: 23:52 pm1 08/30 20:53 Order name: Troponin (emerg Dept Use Only); Complete Time: 23:52 pm1 08/30 20:53 Order name: XRAY Chest (1 view) pm1 08/30 20:54 Order name: Basic Metabolic Panel; Complete Time: 23:52 EDMS 08/30 20:54 Order name: CBC with Automated Diff; Complete Time: 23:52 EDMS 08/30 20:54 Order name: Liver (Hepatic) Function; Complete Time: 23:52 EDMS 08/31 02:06 Order name: Digoxin pm1 08/31 02:35 Order name: BIPAP pm1 08/30 20:53 Order name: EKG; Complete Time: 20:55 pm1 08/30 20:53 Order name: Cardiac monitoring; Complete Time: 21:41 pm1 08/30 20:53 Order name: EKG - Nurse/Tech; Complete Time: 21:41 pm1 08/30 20:53 Order name: IV Saline Lock; Complete Time: 21:41 pm1 08/30 20:53 Order name: Labs collected and sent; Complete Time: 22:24 pm1 08/30 20:53 Order name: O2 Per Protocol; Complete Time: 21:41 pm1 08/30 20:53 Order name: O2 Sat Monitoring; Complete Time: 21:41 pm1 Administered Medications: 01:15 Not Given (Physician Discretion): Bumex 1 mg IVP once jd3 01:16 Drug: Aspirin 325 mg Route: PO; jd3 03:25 Follow up: Response: No adverse reaction jd3 01:16 Drug: Lasix 40 mg Route: IVP; Site: right antecubital; jd3 03:25 Follow up: Response: No adverse reaction jd3 Disposition: 06:43 Co-signature as Attending Physician, Armando Chanel MD Available for consultation at ps1 all times. . Disposition: 08/31/18 01:20 Hospitalization ordered by Lawrence Daniel for Inpatient Admission. Preliminary diagnosis is Non-ST elevation (NSTEMI) myocardial infarction. - Bed requested for Telemetry/MedSurg (Inpatient). - Status is Inpatient Admission. ea - Condition is Stable. - Problem is new. - Symptoms have improved. UTI on Admission? No Signatures: Dispatcher [employer] EDMS Bri Kirk RN RN cg Melo Puente, DIRECTOR TEEN POST DIRECTOR TEEN POST pm1 Sarah Kat RN Kumar Meléndez ea, RN RN jd3 Singer, Phillip, MD MD ps1 Corrections: (The following items were deleted from the chart) 01:59 01:20 Hospitalization Ordered by Lawrence Daniel MD for Inpatient Admission. Preliminary cg diagnosis is Non-ST elevation (NSTEMI) myocardial infarction. Bed requested for Telemetry/MedSurg (Inpatient). Status is Inpatient Admission. Condition is Stable. Problem is new. Symptoms have improved. UTI on Admission? No. pm1 03:36 01:59 08/31/2018 01:20 Hospitalization Ordered by Lawrence Daniel MD for Inpatient ea Admission. Preliminary diagnosis is Non-ST elevation (NSTEMI) myocardial infarction. Bed requested for Telemetry/MedSurg (Inpatient). Status is Inpatient Admission. Condition is Stable. Problem is new. Symptoms have improved. UTI on Admission? No. cg
[2018-08-31] MEDS ORDERED: ACETAMINOPHEN 500 MG TAB PO PRN (03:45)
[2018-08-31 04:42] VITALS: BMI 21.0
--- NOTE | 2018-08-31 06:57 | RAD REPORT ---
EXAM DESCRIPTION: RAD - Chest Single View - 08/30/2018 9:35 pm CLINICAL HISTORY: Shortness of breath COMPARISON: August 14 TECHNIQUE: AP portable chest image was obtained 2119 hours . FINDINGS: Diffusely prominent interstitial pattern seen. Pattern is not substantially different from comparison. Interstitial edema and infiltrate are easily masked by the extent of chronic disease. He art size is prominent but stable. Single lead pacemaker remains in place. Bilateral costophrenic angl e blunting present. No pneumothorax identified. No acute bony abnormality seen. No acute aortic findi ngs suspected. IMPRESSION: Diffuse interstitial opacification similar to comparison. Acute edema or infiltrate easi ly masked by the extent of chronic disease. Minimal bilateral pleural effusions suspected.
--- NOTE | 2018-08-31 07:15 | EKG ---
Test Date: 2018-08-30 Test Time: 21:35:46 Yarn Tester: BRIAN MEASUREMENT RESULTS: Intervals: Rate: 87 UT: QRSD: 132 QT: 384 QTc: 462 [place]: P: UT: QRS: -30 T: -48 INTERPRETIVE STATEMENTS: Atrial fibrillation Left axis deviation Right bundle branch block Abnormal ECG Compared to ECG 08/14/2018 10:13:48 Left-axis deviation now present T-wave abnormality no longer present Possible ischemia no longer present Electronically Signed On 08-31-18 07:14:44 NET LEAD ARCHITECT by García Strong
[2018-08-31] MEDS ORDERED: ASPIRIN EC 81 MG TAB PO SCH (09:00)
[2018-08-31] MEDS ORDERED: DIGOXIN 0.125 MG TABLET PO SCH (09:00)
[2018-08-31] MEDS ORDERED: FUROSEMIDE 40 MG/4 ML VIAL IV SCH (09:00)
[2018-08-31] MEDS: METOPROLOL TAR 25 MG TAB PO SCH ×2 (09:41→20:06)
[2018-08-31] MEDS ORDERED: ALPRAZOLAM 0.25 MG TABLET PO PRN (13:05)
[2018-08-31 20:07] VITALS: BP 107/53
[2018-08-31] MEDS ORDERED: ATORVASTATIN 10 MG TAB PO SCH (21:00)
[2018-08-31 22:06] VITALS: TEMP 97.5
[2018-08-31 22:14] VITALS: O2SAT 99
[2018-08-31] MEDS ORDERED: RSI MEDICATION KIT IV ONE (22:34)
--- NOTE | 2018-08-31 23:06 | HP ---
Date of Admission: 08/31/2018 History Of Present Illness: The patient is an 88-year-old female with critical aortic stenosis. She was having arrangements to have aortic valve surgery at [facility]; however, while she was at home, she started feeling short of breath and that have escalated rapidly to where she came to emergency room with that complaint. The patient went ahead and admitted her for shortness of breath along with possible cardiac ischemia. The patient had mild nausea, no vomiting. She denied chest pain, however, her shortness of breath is significant for her. Voiced no other complaints. Review of Systems: Respiratory: As above. Cardiovascular: As mentioned, no chest pain, no palpitation. Neurological: No complaints. Genitourinary: No complaints. Skeletomuscular: No complaints. Gastrointestinal: As above. Past Medical History: 1. As above. Aortic stenosis. 2. Chronic atrial fibrillation. 3. COPD. 4. Hyperlipidemia. 5. Diastolic and systolic congestive heart failure. Social History: No smoking, alcohol, or drug abuse history. Family History: Noncontributing. Medications: Furosemide 40 mg p.o. daily, Xarelto 50 mg p.o. daily, digoxin 0.25 mg p.o. daily, Lopressor 25 mg p.o. daily, and simvastatin 20 mg p.o. daily. Physical Examination: Vital Signs: Blood pressure 128/58, pulse 96, temperature 97.5. Heart: Regular rate and rhythm. Chest: Clear to auscultation. Abdomen: Soft, nontender. No hepatosplenomegaly. Bowel sounds are normoactive. Extremities: No edema. No cyanosis. Peripheral pulses are felt. Neurological: Alert, oriented, nonfocal. Grossly intact. Imaging Studies: Chest x-ray showed diffuse interstitial opacities. No change. Mild bilateral pleural effusions. EKG; atrial fibrillation, left axis deviation, right bundle-branch block. Laboratory Data: White cell count 6.5, hemoglobin 8.0, hematocrit 23.3, platelets 198. PT 36.4, INR 3.05. Chemistry: Sodium 129, potassium 3.8, BUN 43, creatinine 1.40, rapid troponin at 1.95 went up to 7.36. Digoxin was 1.40. Assessment And Plan: 1. Severe aortic stenosis with congestive heart failure systolic and diastolic , possible coronary ischemia causing troponin to be increased. The patient is being admitted, put her on IV Lasix and metoprolol. Continue her Lipitor and have asked Dr. Sommers to see her Cardiology and arrangements being considered to go ahead and transfer the patient to [facility] where a definitive procedure and treatment for her severe aortic stenosis is to be made. Meanwhile , the patient right now is hemodynamically stable for that transfer. We will continue above delineated treatment. 2. Anemia of chronic disease. The patient's hemoglobin initially was at 10, dropped down to 8. There is no clinical indication of acute bleeding. We will monitor that until the patient gets transferred, but as mentioned, she is hemodynamically stable. 3. Hyponatremia, likely from Lasix and congestive heart failure. We will follow up electrolytes and manage accordingly. Expect that to improve with improvement of congestive failure condition. Look orders for details. MFS/MODL Voice ID: [id number] MTDD
[2018-09-01] MEDS ORDERED: EPINEPHrine 1 MG/10 ML SYR IV ONE (01:15)
--- NOTE | 2018-09-04 12:31 | CON ---
Date of Consultation: 08/31/2018 Reason For Consultation: Non-ST elevation myocardial infarction. History Of Present Illness: Ms. Durbin is 88 years old. She has a history of atrial fibrillation fo r which she takes Xarelto that is chronic. She has a history of hypertension, dyslipidemia, diastoli c congestive heart failure, recently found to have aortic stenosis that is critical at 0.6 sq cm with normal coronaries, ejection fraction 48%, moderate pulmonary hypertension. There is a plan for her to have a TAVR by Dr. Devin Vazquez at [facility] and they are still awaiting for an appoin tment. She came in with CHF, elevated troponin, and COPD exacerbation. Her elevated troponin and CH F are obviously related to her aortic stenosis, but she has normal coronaries. No symptoms right now . She also has a history of pacemaker. Allergies: NONE. Review of Systems: Negative. Social History: Negative. Family History: Negative. Medications: At home include digoxin, Lasix, metoprolol, Xarelto, and Zocor. Physical Examination: General: She appeared her stated age. She was alert and oriented x3. Vital Signs: Stable. She was in a paced rhythm. HEENT: Negative. Neck: Supple with aortic stenosis murmurs in both carotids. Chest: Clear. Cardiac: Revealed an S4 gallops, paced rhythm, aortic stenosis murmur. Abdomen: Benign. Extremities: Revealed no clubbing or cyanosis. She had trace edema. Diagnostic Data: Chest x-ray was negative. EKG showed atrial fibrillation with left bundle-branch b lock. Creatinine is 1.4. Hemoglobin is 8.0. INR is 3.05. Sodium was 129. Troponin was 1.95. BNP was 32,698. Impression And Plan: 1.Critical aortic stenosis with diastolic congestive heart failure, elevated troponin. 2.Atrial fibrillation, status post pacemaker, on Xarelto with a hemoglobin of 8.0. 3.Hyponatremia secondary to congestive heart failure. 4.Dyslipidemia. 5.Status post pacemaker placement. Ms. Durbin needs to be diuresed gently. Continue her medications for now. Her only solution to her issues is aortic valve replacement, which will be done transcutaneously. I will discuss the case fur ther with Dr. Vazquez and hopefully get her transferred for her AVR before she goes home. NB/MODL Voice ID: [id number] Report ID: [id number]
== END 2018-09-01 01:16 | disposition expired ==
LOC: ER 20:36 → ERHOLD 08-31 02:15 → 2ND 08-31 03:05
PROVIDERS: ADMIT Internal Medicine; ATTEND Internal Medicine
PROC: 5A12012 Performance of Cardiac Output, Single, Manual (ICD-10-PCS; principal; 2018-09-01)
PROC: 0BH17EZ Insertion of Endotracheal Airway into Trachea, Via Natural or Artificial Opening (ICD-10-PCS; 2018-09-01)
DX: I21.4 Non-ST elevation (NSTEMI) myocardial infarction (principal); I50.42 Chronic combined systolic (congestive) and diastolic (congestive) heart failure; E87.1 Hypo-osmolality and hyponatremia; J44.1 Chronic obstructive pulmonary disease with (acute) exacerbation; I11.0 Hypertensive heart disease with heart failure; I48.91 Unspecified atrial fibrillation; Z79.01 Long term (current) use of anticoagulants; E78.5 Hyperlipidemia, unspecified; I35.0 Nonrheumatic aortic (valve) stenosis; I27.20 Pulmonary hypertension, unspecified; Z95.0 Presence of cardiac pacemaker; I44.7 Left bundle-branch block, unspecified; I46.9 Cardiac arrest, cause unspecified
CPT/HCPCS: 36415; 71045; 80048; 80076; 80162; 83735; 83880; 84484; 85025; 85610; 93005; 94660; 94760; 96374; 99285; J0171; J1940